=== PATIENT | male | born 1945 | race Caucasian/White ===

== ENCOUNTER 2023-03-28 14:36 | Outpatient (CLI) | payer MEDICARE, SELFPAY ==
--- NOTE | 2023-03-28 15:00 | CRLHL7_ITS ---
For Patients: As a result of the Century Cures Act, medical imaging exams and procedure reports are released immediately into your electronic medical record. You may view this report before your referring provider. If you have questions, please contact your health care provider. INDICATION: HYPERTENSION TECHNIQUE: Grayscale, color Doppler and power Doppler evaluation of the renal arteries performed. COMPARISON: None available FINDINGS: BILATERAL RENAL ARTERY DUPLEX ULTRASOUND ABDOMINAL AORTA: Peak systolic velocity = 81 cm/s. No aortic aneurysm. RIGHT KIDNEY: 13.4 cm in length. There is no hydronephrosis. Simple anechoic cyst upper pole right kidney measuring 6.8 x 5.5 x 5.5 cm. Peak systolic velocity = 132 cm/second Renal artery to aortic peak systolic velocity ratio = 1.6 Resistive indices: 0.7 Renal vein = patent LEFT KIDNEY: 11.1 cm in length. There is no hydronephrosis. Peak systolic velocity = 220 cm/second Renal artery to aortic peak systolic velocity ratio = 2.7 Resistive indices: 0.6-0.7 Renal vein = patent IMPRESSION: Elevated velocity within the proximal left renal artery measuring 220 cm/seconds. Note is made that the renal artery was somewhat difficult to visualize. Further evaluation with CTA or MRA may be useful. Incidental 6.8 cm simple cyst upper pole right kidney. No hydronephrosis. Dictated by Erik Turner MD @ 03/29/2023 8:59:31 AM (Electronically Signed)
== END 2023-03-28 14:37 | disposition home or self-care (01) ==
PROVIDERS: PCP Physician Assistant; Visit Provider Physician Assistant
DX: I10 Essential (primary) hypertension (principal); N28.1 Cyst of kidney, acquired
CPT/HCPCS: 76775; 93975

== ENCOUNTER 2023-07-10 09:32 | Emergency (ER) | payer MEDICARE, SELFPAY ==
[2023-07-10 09:41] VITALS: BP 180/88; PULSE 72; RESP 18; TEMP 36.3; O2SAT 98; BMI 26.3
--- NOTE | 2023-07-10 10:49 | CRLHL7_ITS ---
For Patients: As a result of the 21st Century Cures Act, medical imaging exams and procedure reports are released immediately into your electronic medical record. You may view this report before your referring provider. If you have questions, please contact your health care provider. INDICATION: Low-back pain. TECHNIQUE: Volumetric helical scanning of the lumbar spine was performed without contrast material. Coronal and sagittal reconstructions were obtained. COMPARISON: Abdomen/pelvis CT of 04/27/2016. FINDINGS: No fracture or bone destruction. No spondylolisthesis. T11-12: Moderate disc degeneration. No protrusion or bulge. Normal facets. No significant canal or foraminal stenosis. T12-L1: Moderate disc degeneration. No protrusion or bulge. Mild facet degenerative changes. No significant canal or foraminal stenosis. L1-2: Moderate disc degeneration. No protrusion or bulge. Mild facet degenerative changes. No significant canal or foraminal stenosis. L2-3: Mild to moderate disc degeneration. Chronic circumferential disc bulge. Mild facet degenerative changes and hypertrophy. Mild to moderate generalized canal stenosis and foraminal stenosis bilaterally. L3-4: Mild to moderate disc degeneration. Chronic circumferential disc bulging. Mild facet degenerative change and hypertrophy bilaterally. Ligamentum flavum thickening bilaterally. Moderate to marked canal stenosis and moderate foraminal stenosis bilaterally. L4-5: Mild disc degeneration. Circumferential disc bulging. Mild facet degenerative changes. Moderate canal stenosis. Moderate left foraminal stenosis and mild right foraminal stenosis. L5-S1: Advanced disc degeneration with chronic disc bulging. Moderate facet degenerative changes bilaterally. Mild to moderate canal stenosis, moderate left foraminal stenosis and mild to moderate right foraminal stenosis. Visualized sacrum and sacroiliac joints: Osteoarthritis of both sacroiliac joints with bridging osteophytes anteriorly on both sides. Stones are incidentally demonstrated in the gallbladder. A 6.5 cm cyst arises from the upper pole of the right kidney. A 2 mm stone is noted in the left renal collecting system. IMPRESSION: 1. No acute abnormality evident. 2. Multilevel degenerative changes and chronic disc bulging, as above. Most significant canal stenosis at L3-4, moderate to marked. No clearly significant foraminal stenosis. 3. Cholelithiasis. Please note that all CT scans at this facility use dose modulation, iterative reconstruction, and/or weight-based dosing when appropriate to reduce radiation dose to as low as reasonably achievable. Dictated by Dipesh Bryan MD @ 07/10/2023 12:24:38 PM (Electronically Signed)
--- NOTE | 2023-07-10 10:50 | CRLHL7_ITS ---
For Patients: As a result of the Century Cures Act, medical imaging exams and procedure reports are released immediately into your electronic medical record. You may view this report before your referring provider. If you have questions, please contact your health care provider. INDICATION: Leg pain and swelling bilaterally. TECHNIQUE: Guillen-scale two-dimensional ultrasound without and with compression as well as color-flow and spectral Doppler of the lower extremity veins bilaterally. COMPARISON: None. FINDINGS: Normal compressibility of and flow within the common femoral, superficial femoral, popliteal, posterior tibial, profunda, and greater saphenous veins is demonstrated bilaterally. No thrombus is identified. IMPRESSION: Negative bilateral lower extremity venous Doppler study. Dictated by Dipesh Bryan MD @ 07/10/2023 2:44:49 PM (Electronically Signed)
--- NOTE | 2023-07-10 10:53 | ED_ITS ---
HPI - General Adult General Chief complaint: Back Injury/Pain Stated complaint: bad back Time Seen by Provider: 07/10/23 10:22 History of Present Illness HPI narrative: Patient is a 78 year white male lives near [place], here with his . Jasbir hurt his back chopping wood few weeks ago was put on prednisone and pain medication. He most recently has been on tramadol. He did not think that the tramadol or the pain medicine or prednisone helped him very much. He continues to have low back pain. His reports that he is extremely weak difficulty sitting up, he feels nauseated. He has been constipated. He has been urinating frequently. He denies fevers or chills but feels generally very weak. He has no headache. He was on disability for low back pain for 3 months remotely. No perineal numbness no incontinence of bowel or bladder. But he does feel he had has to go frequently. He also reports that his right leg is more swollen than normal Related Data Home Medications Medication Instructions Recorded Confirmed amlodipine 10 mg tablet 10 mg PO DAILY 06/25/23 06/25/23 atorvastatin 40 mg tablet 40 mg PO DAILY 06/25/23 06/25/23 benazepril 40 mg tablet mg PO 06/25/23 06/25/23 chlorthalidone 25 mg tablet 25 mg PO DAILY 06/25/23 06/25/23 finasteride 5 mg tablet 5 mg PO DAILY 06/25/23 06/25/23 glipizide 10 mg tablet, extended 10 mg PO BID 06/25/23 06/25/23 release 24 hr metformin 500 mg tablet,extended 1,000 mg PO BID 06/25/23 06/25/23 release 24 hr methylprednisolone 4 mg tablets in 0 mg PO 06/25/23 06/25/23 a dose pack metoprolol succinate 25 mg 25 mg PO DAILY 06/25/23 06/25/23 tablet,extended release 24 hr sildenafil 100 mg tablet 100 mg PO DAILY PRN intercourse 06/25/23 06/25/23 spironolactone 25 mg tablet 25 mg PO DAILY 06/25/23 06/25/23 tizanidine 4 mg tablet mg PO 06/25/23 06/25/23 Previous Rx's Medication Instructions Recorded tramadol 50 mg tablet 50 mg PO Q8H PRN pain #10 tabs 06/25/23 methylprednisolone 4 mg tablets in See Rx Instructions PO .COMPLEX 07/10/23 a dose pack (Medrol (Michael)) #21 ea Allergies Allergy/AdvReac Type Severity Reaction Status Date / Time No Known Drug Allergies Allergy Verified 07/10/23 09:41 Review of Systems Status of ROS: Reports: 6 or more systems reviewed and unremarkable except as noted in History and below [facility] Medical History Low back pain ?M54.50 - Low back pain, unspecified (ICD-10) Exam Narrative: Exam Narrative: Objective: Vital signs unremarkable other than blood pressure 180/88 In general the patient is weak appearing, he is holding an emesis bag by his mouth. HEENT is unremarkable dry mucous membranes neck is supple chest is clear heart rate and rhythm regular with 2/6 systolic murmur Abdomen benign soft Extremities show 1+ edema the right lower extremity from ankle and foot, left side is clear from edema Neurologic is grossly nonfocal. Const: Vital Signs, click to edit/add: Vital Signs - 24 hr 07/10/23 09:41 07/10/23 12:46 Temperature 97.3 F L Pulse Rate [Right Pulse Oximeter] 72 85 Respiratory Rate 18 17 Blood Pressure [Ri ght Upper Arm] 180/88 H 162/79 H Pulse Oximetry 98 97 Oxygen Delivery Me thod Room Air Course Vital Signs Vital signs: Initial Vital Signs Temperature 97.3 F L 07/10/23 09:41 Temperature Source Temporal Artery Scan 07/10/23 09:41 Pulse Rate 72 07/10/23 09:41 Respiratory Rate 18 07/10/23 09:41 Blood Pressure 180/88 H 07/10/23 09:41 Blood Pressure Mean 118 H 07/10/23 09:41 Blood Pressure Position Sitting 07/10/23 09:41 Pulse Oximetry 98 07/10/23 09:41 Oxygen Delivery Method Room Air 07/10/23 09:41 Vital Signs Temperature 97.3 F L 07/10/23 09:41 Pulse Rate 72 07/10/23 09:41 Respiratory Rate 18 07/10/23 09:41 Blood Pressure 180/88 H 07/10/23 09:41 Pulse Oximetry 98 07/10/23 09:41 Oxygen Delivery Method Room Air 07/10/23 09:41 Temperature 97.3 F L 07/10/23 09:41 Pulse Rate 85 07/10/23 12:46 Respiratory Rate 17 07/10/23 12:46 Blood Pressure 162/79 H 07/10/23 12:46 Pulse Oximetry 97 07/10/23 12:46 Oxygen Delivery Method Room Air 07/10/23 09:41 Medical Decision Making MDM Narrative Medical decision making narrative: [age] white male with a history of low back pain, new right leg swelling, weakness, constipation, and generalized debility. I think at this point be reasonable to CT scan is back, rule out significant disc herniation or fracture. Will also do an ultrasound of his right leg, get a urinalysis as he has been urinating frequently. Will give him some IV pain medicine for his back. Patient may need may need admission for rehabilitation, pain control, and transition to more assisted care for a period of time. Addendum 1:00 p.m.: Patient's CT scan of the lumbar spine show no acute abnormality evident, chronic multilevel degenerative changes and chronic disc bulging moderate to significant central stenosis at L3-4 no clearly significant foraminal stenosis and gallstones are present. EKG shows sinus rhythm no acute ST T wave changes. White count is normal and hemoglobin is normal. ER profile is negative, glucose is 165, troponins less than 0.01, CRP is less than 0.5 ProBNP is 128. Will check UA and then disposition pending findings Addendum 1:40 p.m. white count hemoglobin normal, ER profile is unremarkable other than glucose 165, LFTs normal, troponin negative, CRP negative, proBNP is negative, his ultrasound of his legs show no clot bilaterally. His CT scan shows some L3-4 central stenosis but no marked lateral stenosis. At this point I have tried to get an enema to work for him, if this is unsuccessful he can try MiraLax 1 cap twice a day for the next 3 days and we can try home for now. He can return if there is changes concerns. Also I would like to see urine test for goes as he had some urinary frequency, but this certainly could be related to his constipation as well. Addendum 2:15 p.m.: The patient has pretty much a negative urinalysis, vital signs remain unremarkable, white count hemoglobin are normal your profile likely a largely unremarkable her troponin is troponins negative, CRP negative . at this point I think he can try home Cl things progress, use some MiraLax as needed perhaps 1 capsule 2 times a day for the next 3 days to get constipation regulated. Update regular doctor in the next few days certainly return problems or concerns sooner to the ER. His Doppler scan of both lower extremities was unremarkable Lab Data Labs: Lab Results 07/10/23 07/10/23 Range/Units 11:55 Unknown WBC 5.61 (4.50-11.00) K/uL RBC 4.98 (4.30-5.90) m/uL Hgb 14.6 (13.5-17.5) gm/dL Hct 42.0 (37.0-53.0) % MCV 84 (80-100) fL MCH 29 (26-34) pg MCHC 35 (32-36) gm/dL RDW Coeff of Ana 12.0 (11.5-15.5) % Plt Count 197 (140-440) K/uL Neut % (Auto) 75.5 H (42.0-72.0) % Lymph % (Auto) 14.8 L (20-44) % [place] % (Auto) 7.5 (0.0-11.0) % Eos % (Auto) 2.0 (0.0-7.0) % Baso % (Auto) 0.2 (0.0-3.0) % Neut # (Auto) 4.20 (1.7-7.0) K/uL Lymph # (Auto) 0.80 L (0.90-2.90) K/uL [place] # (Auto) 0.40 (0.00-0.90) K/UL Eos # (Auto) 0.11 (0.00-0.50) K/uL Baso # (Auto) 0.01 (0.00-0.30) K/uL Abs Immat Gran (auto) 0.00 (0.00-0.30) K/uL Imm/Tot Granulo (auto) 0.0 % Sodium 137 (135-149) mmol/L Potassium 3.6 (3.6-5.1) mmol/L Chloride 103 (96-114) mmol/L Carbon Dioxide 25 (20-32) mmol/L Anion Gap 9 (7-15) mEq/L BUN 10 (7-30) mg/dL Creatinine 0.9 (0.5-1.5) mg/dL Estimated Creat Clear 71.02 Estimated GFR 89 ml/min Glucose 165 H (60-115) mg/dL Calcium 8.8 (8.4-10.6) mg/dL Total Bilirubin 1.0 (0.1-1.5) mg/dL Direct Bilirubin 0.1 (0.0-0.5) mg/dL AST 21 (12-35) U/L ALT 23 (4-50) U/L Alkaline Phosphatase 78 (40-150) U/L Troponin I < 0.01 L (0.01-0.04) ng/mL C-Reactive Protein < 0.5 L (0.5-1.0) mg/dL NT-Pro-B Natriuret Pep 128 pg/mL Total Protein 6.8 (6.0-8.3) g/dL Albumin 4.0 (3.3-5.0) g/dL Amylase 46 (18-89) U/L Urine Color Yellow (Yellow) Urine Appearance Clear (Clear) Urine pH 7.0 (5.0-8.5) Ur Specific [place] 1.020 (1.000-1.030) Urine Protein Negative (Negative) Urine Glucose (UA) Trace A (Negative) Urine Ketones 1+ A (Negative) Urine Blood Negative (Negative) Urine Nitrite Negative (Negative) Urine Bilirubin Negative (Negative) Urine Urobilinogen 0.2 (0.2-1.0) Ur Leukocyte Esterase Negative (Negative) Urine RBC 0-2 (0-2) Urine WBC 0-2 (0-5) Ur Squamous Epith Cells Few (None-Few) Urine Bacteria Few A (None) Discharge Plan Discharge Clinical Impression: Low back pain, Diabetes, Urinary frequency, Weakness Patient Disposition: Home w/ Parent or Adult Condition: Improved Additional Instructions: Light activity, may try some MiraLax [id number] for bowel control and constipation treatment, would also read try Medrol Dosepak. Recheck with your primary care doctor in the next 2-3 days, certainly return to ED sooner problems or concerns. Activity Level: Light activity Discharge Diet: Diabetic Prescriptions: New methylprednisolone [Medrol (Michael)] 4 mg tablets,dose pack See Rx Instructions .ROUTE .COMPLEX Qty: 21 0RF Rx Instructions: orally per package directions No Action methylprednisolone 4 mg tablets,dose pack 0 mg PO tizanidine 4 mg tablet PO sildenafil 100 mg tablet 100 mg PO DAILY PRN (Reason: intercourse) benazepril 40 mg tablet PO metoprolol succinate 25 mg tablet extended release 24 hr 25 mg PO DAILY glipizide 10 mg tablet extended release 24hr 10 mg PO BID finasteride 5 mg tablet 5 mg PO DAILY spironolactone 25 mg tablet 25 mg PO DAILY amlodipine 10 mg tablet 10 mg PO DAILY atorvastatin 40 mg tablet 40 mg PO DAILY metformin 500 mg tablet extended release 24 hr 1,000 mg PO BID chlorthalidone 25 mg tablet 25 mg PO DAILY tramadol 50 mg tablet 50 mg PO Q8H PRN (Reason: pain) Qty: 10 0RF Follow Up/Referrals: Cristiano Collins MD [Primary Care Provider] - Stand Alone Forms: MyHealth Info Instructions
[2023-07-10] MEDS: 0.9 % SODIUM CHLORIDE 500 ML 500 ML IV (12:00)
[2023-07-10 12:19] LABS: Basophils Absolute Auto 0.01 K/uL (0.00-0.30); Basophils Percent Auto 0.2 % (0.0-3.0); Eosinophils Absolute Auto 0.11 K/uL (0.00-0.50); Hemoglobin* 14.6 gm/dL (13.5-17.5); Lymphocytes Percent Auto 14.8 % (20-44); Mean Corpuscular HGB Conc 35 gm/dL (32-36); Mean Corpuscular Hemoglobin 29 pg (26-34); Mean Corpuscular Volume 84 fL (80-100); Monocytes Percent Auto 7.5 % (0.0-11.0); Neutrophils Percent Auto 75.5 % (42.0-72.0); Platelet Count* 197 K/uL (140-440); Red Blood Count 4.98 m/uL (4.30-5.90); White Blood Count* 5.61 K/uL (4.50-11.00)
[2023-07-10 12:22] LABS: Slide Review Reflex No
[2023-07-10 12:32] LABS: Chloride* 103 mmol/L (96-114); Sodium* 137 mmol/L (135-149)
[2023-07-10 12:33] LABS: Potassium* 3.6 mmol/L (3.6-5.1)
[2023-07-10 12:34] LABS: Amylase* 46 U/L (18-89)
[2023-07-10 12:35] LABS: Anion Gap 9 mEq/L (7-15); Aspartate Amino Transferase* 21 U/L (12-35); Bilirubin Direct* 0.1 mg/dL (0.0-0.5); Blood Urea Nitrogen* 10 mg/dL (7-30); Carbon Dioxide* 25 mmol/L (20-32); Creatinine* 0.9 mg/dL (0.5-1.5); Est. Creatinine Clearance* 71.02; Estimated Glomerular Filt Rate 89 ml/min; Total Protein* 6.8 g/dL (6.0-8.3)
[2023-07-10 12:36] LABS: Alanine Aminotransferase* 23 U/L (4-50); Alkaline Phosphatase* 78 U/L (40-150); Calcium* 8.8 mg/dL (8.4-10.6); Glucose* 165 mg/dL (60-115)
[2023-07-10 12:40] LABS: C Reactive Protein* < 0.5 mg/dL (0.5-1.0)
[2023-07-10] MEDS: DOCUSATE SODIUM/BENZOCAINE 5 ML ENEMA PR (12:45)
[2023-07-10 12:46] VITALS: BP 162/79; PULSE 85; RESP 17; O2SAT 97
[2023-07-10 12:49] LABS: NT Pro B Type NatriureticPept* 128 pg/mL; Troponin I* < 0.01 ng/mL (0.01-0.04)
[2023-07-10 14:03] LABS: Appearance Urine Clear (Clear); Bilirubin Urine Negative (Negative); Blood Urine Negative (Negative); Color Urine Yellow (Yellow); Glucose Urine Trace (Negative); Ketones Urine 1+ (Negative); Leukocyte Esterase Urine Negative (Negative); Nitrite Urine Negative (Negative); Protein Urine Negative (Negative); Urobilinogen Urine 0.2 (0.2-1.0)
[2023-07-10 14:12] LABS: Bacteria Urine Few; RBC Urine 0-2 (0-2); Squamous Epithelial Cell Urine Few (None-Few); WBC Urine 0-2 (0-5)
--- NOTE | 2023-07-11 15:14 | ED.NURSE ---
rx was sent to [facility] instead of [facility]. chart accessed and pt called with remedy of situation. rx called to [facility].
== END 2023-07-10 14:36 | disposition home or self-care (01) ==
PROVIDERS: Emergency Provider Family Medicine; PCP Surgery
DX: M54.50 Low back pain, unspecified (principal); E11.9 Type 2 diabetes mellitus without complications; R35.0 Frequency of micturition; R53.1 Weakness
CPT/HCPCS: 36415; 72131; 80048; 80076; 81001; 82150; 83880; 84484; 85025; 86140; 87086; 93005; 93970; 93971; 99284; 99285; A9270; J7120